=== PATIENT | male | born 1950 | race Caucasian/White ===

== ENCOUNTER 2019-02-25 10:02 | Emergency (ER) | payer OTHER ==
[~2019-02-25] VITALS: Ht 165.1 cm; Wt 90.7 kg
[~2019-02-25 10:02] MED LIST: CALCIUM STOOL240 MG NGT; NUPERCAINAL60 GM RC
== END 2019-02-25 16:28 | disposition home or self-care (01) ==
LOC: ER 10:02
DX: M65.841 Other synovitis and tenosynovitis, right hand (principal); M65.821 Other synovitis and tenosynovitis, right upper arm

== ENCOUNTER 2025-04-17 09:05 | Outpatient (CLI) | payer OTHER | END 2025-04-17 09:13 | disposition home or self-care (01) | LOC: SONOGRAMA 09:05 | PROVIDERS: ATTEND Pathology Anatomic Pathology & Clinical Pathology | DX: E04.1 Nontoxic single thyroid nodule (principal) ==